=== PATIENT | female | born 1980 | race American Indian/Alaskan Native ===

== ENCOUNTER 2017-10-09 10:06 | Inpatient (IN) ==
[2017-10-09] MEDS ORDERED: HYDROmorphone 2 MG/ML VIAL IV PRN (10:26)
[2017-10-09] MEDS ORDERED: PROMETHAZINE 25 MG/ML VIAL IV PRN (10:26)
[2017-10-09] MEDS ORDERED: LORazepam 2 MG/ML VIAL IV PRN (10:32)
[2017-10-09] MEDS: 0.9 % SODIUM CHLORIDE 10 ML SYRINGE IV SCH ×5 (11:30→22:32)
[2017-10-09 11:33] LABS: Mean Cell Volume 99.1 fL (80.0-100.0); Mean Corpuscular HGB Conc 34.6 g/dL (31.0-36.0); Mean Corpuscular Hemoglobin 34.3 pg (26.0-34.0); Platelet Count 254 K/mcL (140-440); RBC 3.67 M/mcL (4.00-5.20); Red Cell Distribution Width 14.5 % (11.5-14.5)
[2017-10-09] MEDS: 0.9 % SODIUM CHLORIDE 1,000 ML IV SCH ×2 (11:43→21:36)
[2017-10-09] MEDS: ONDANSETRON 4 MG/2 ML VIAL IV PRN ×2 (11:47→17:50)
[2017-10-09 11:48] LABS: Lipase 17 U/L (7-60)
[2017-10-09] MEDS: METOCLOPRAMIDE 10 MG/2 ML VIAL IV SCH ×2 (12:00→17:34)
[2017-10-09] MEDS: PIPERACILLIN SODIUM/TAZOBACTAM 3.375 GM in DEXTROSE 5% IN WATER 50 ML IV SCH ×2 (12:01→17:20)
[2017-10-09] MEDS: INSULIN LISPRO 1 UNIT/0.01 ML UNIT SQ SCH ×3 (12:05→22:31)
[2017-10-09 12:10] LABS: ALT/SGPT 16 U/l (0-40); Albumin 3.4 gm/dL (3.2-5.2); Albumin/Globulin Ratio 0.8 (1.0-2.3); Alkaline Phosphatase 164 U/L (39-117); Bilirubin,Direct 0.5 mg/dL (0.0-0.3); Blood Urea Nitrogen 4 mg/dl (6-20); Gamma Glutamyl Transpeptidase 750 U/L (5-36); Uric Acid 8.7 mg/dL (2.5-8.0)
[2017-10-09 12:11] LABS: Band Neutrophils % 1 % (0-10); Lymphocytes % 21 % (15-49); Metamyelocytes % 1 % (0-0); Monocytes % (Manual) 11 % (1-12); Platelet Estimate NORMAL (NORMAL); RBC Morphology NORMAL (NORMAL); Segmented Neutrophils % 66 % (38-78)
[2017-10-09] MEDS ORDERED: MAGNESIUM SULFATE 32.48 MEQ in DEXTROSE 5% IN WATER 50 ML IV ONE (13:05)
[2017-10-09] MEDS: MAGNESIUM SULFATE 2 GM/50 ML BAG IV SCH ×6 (13:20→18:54)
[2017-10-09] MEDS: POTASSIUM CHLORIDE 40 MEQ in DEXTROSE 5% IN WATER 500 ML IV SCH ×3 (14:13→23:25)
[2017-10-09 14:16] LABS: Hemoglobin A1C 7.3 % HGB (4.0-6.0)
[2017-10-09 14:30] LABS: Appearance,Urine CLOUDY; Bacteria,Urine 0 /hpf (0); Bilirubin,Urine NEG (NEG); Color,Urine YELLOW; Glucose,Urine (UA) NEGATIVE (NEG); Leukocyte Esterase,Urine 500 /uL (NEG); Protein,Urine 30 mg/dL (NEG); Specific Gravity,Urine 1.006 (1.000-1.035); Urine Blood 0.2 mg/dL (<0.03); Urine Hyphae Yeast FEW /hpf (0); Urine RBC 24 /hpf (0-1); Urine Squamous Epithelial Cell < 1 /hpf (0-4); Urine WBC > 182 /hpf (0-4); Urobilinogen,Urine NEG (NEG)
[2017-10-09 15:40] LABS: Amphetamine Screen,Urine NONE DETECTED (NONDETECTED); Benzodiazepines Screen,Urine NONE DETECTED (NONDETECTED); Cocaine Screen,Urine NONE DETECTED (NONDETECTED); Opiate Screen,Urine NONE DETECTED (NONDETECTED); Oxycodone, Urine Screen NONE DETECTED (NONDETECTED)
[2017-10-09] MEDS: PANTOPRAZOLE 40 MG VIAL IV SCH (16:25)
[2017-10-09] MEDS ORDERED: traZODone HCL 50 MG TABLET PO PRN (21:00)
[2017-10-10] MEDS: METOCLOPRAMIDE 10 MG/2 ML VIAL IV SCH ×5 (00:29→23:21)
[2017-10-10] MEDS: PIPERACILLIN SODIUM/TAZOBACTAM 3.375 GM in DEXTROSE 5% IN WATER 50 ML IV SCH ×5 (00:29→23:21)
[2017-10-10] MEDS: ONDANSETRON 4 MG/2 ML VIAL IV PRN ×2 (02:50→15:34)
[2017-10-10] MEDS: 0.9 % SODIUM CHLORIDE 1,000 ML IV SCH ×3 (05:51→17:49)
[2017-10-10 05:54] LABS: Basophils # (Auto) 0.1 K/mcL (0.0-0.3); Basophils % (Auto) 0.7 % (0.0-2.0); Eosinophils # (Auto) 0.1 K/mcL (0.0-0.7); Eosinophils % (Auto) 0.9 % (0.0-7.0); Granulocytes % (Auto) 67.2 % (38.0-78.0); Lymphocytes # (Auto) 1.9 K/mcL (1.5-4.8); Lymphocytes % (Auto) 19.6 % (15.5-49.0); Mean Cell Volume 101.3 fL (80.0-100.0); Mean Corpuscular HGB Conc 34.8 g/dL (31.0-36.0); Mean Corpuscular Hemoglobin 35.3 pg (26.0-34.0); Monocytes # (Auto) 1.1 K/mcL (0.1-0.9); Monocytes % (Auto) 11.6 % (1.0-12.0); Platelet Count 223 K/mcL (140-440); RBC 3.26 M/mcL (4.00-5.20); Red Cell Distribution Width 14.8 % (11.5-14.5)
[2017-10-10 06:53] LABS: ALT/SGPT 12 U/l (0-40); Albumin 2.9 gm/dL (3.2-5.2); Albumin/Globulin Ratio 0.8 (1.0-2.3); Alkaline Phosphatase 133 U/L (39-117); Bilirubin,Direct 0.5 mg/dL (0.0-0.3); Blood Urea Nitrogen 3 mg/dl (6-20); Gamma Glutamyl Transpeptidase 608 U/L (5-36); Uric Acid 4.3 mg/dL (2.5-8.0)
[2017-10-10] MEDS: PANTOPRAZOLE 40 MG VIAL IV SCH ×2 (07:23→15:58)
[2017-10-10] MEDS: INSULIN LISPRO 1 UNIT/0.01 ML UNIT SQ SCH ×4 (07:24→21:16)
[2017-10-10] MEDS ORDERED: CALCIUM GLUCONATE 4.65 MEQ/10 ML VIAL IV ONE (08:34)
[2017-10-10] MEDS ORDERED: POTASSIUM PHOSPHATE 40 MEQ in DEXTROSE 5% IN WATER 500 ML IV ONE (08:37)
[2017-10-10] MEDS: 0.9 % SODIUM CHLORIDE 10 ML SYRINGE IV SCH ×3 (09:11→21:16)
[2017-10-10] MEDS: SODIUM CHLORIDE 0.9% IV SCH ×3 (11:53→15:38)
[2017-10-10] MEDS: CALCIUM CHLORIDE IV SCH ×3 (11:53→15:38)
--- NOTE | 2017-10-10 15:30 | General Surgery Progress Note ---
Subjective Patient reports: feels better, pain is less, tolerating liquids well, bowel movement, nausea, afebrile Narrative: Note initiated : 10/10/17 at 3:29 pm Service Date, if different from initiated Date: [] Patient: Isabel Culver 37 y/o F admitted on 10/09/17 for Recurring N/V, Cholelithiasis. Chief Complaint: [patient states that she feels better. Her nausea and vomiting has significantly improved. She still has some mild mid abdominal pain. Her electrolytes much better.. Her calcium did drop to 5.6. Her phosphorus is 2.6 and potassium is 3.6. She has not had vomiting since admission. Her follow-up lactate is 1.7. Urine cultures revealed no growth. There is some rise in her liver transaminases but her SGOT SGPT and alkaline phosphatase minimally elevated. She probably has some baseline toxic hepatopathy, more than likely related to alcohol ingestion. Will check hepatitis panel to be sure.her urine tox screen is negative.] Objective Temp Pulse Resp BP Pulse Ox 96.9 F L 87 14 119/76 98 10/10/17 11:45 10/10/17 11:45 10/10/17 11:45 10/10/17 11:45 10/10/17 11:45 - Additional Data Intake & Output - Last 24 hours: Intake & Output 10/08/17 10/09/17 10/10/17 10/11/17 05:59 05:59 05:59 05:59 Intake Total 4069 / 4069 760 / 760 Output Total 3200 / 3200 Balance 869 / 869 760 / 760 Weight 153 lb 3.2 oz 153 lb 3.2 oz - General physical appearance well developed, well nourished, no distress - Eyes PERRL, normal ocular movement - ENT normal pinna, normal nares, normal mucosa, no hearing loss, no congestion - Neck no masses, no bruits, trachea midline, no lymphadectomy, no venous distension - Respiratory normal expansion, normal respiratory effort, clear to percussion, clear to auscultation - Cardiovascular Cardiovascular exam: Present: normal rate and rhythm, RRR, +S1, +S2. Absent: JVD, tachycardia - Abdomen non tender, bowel sounds (present), surgical scars (none), masses (none) - Integumentary no rash, no growths, no abnormal pigmentation - Neurologic normal coordination, other (decreased sensation in feet and lower legs) - Musculoskeletal normal gait, normal posture - Psychiatric oriented to time, oriented to person, oriented to place, speech is normal, memory intact - Labs 10/10/17 04:29 10/10/17 04:29 Diabetes panel 10/10/17 Range/Units 04:29 Sodium 135 (133-145) mmol/L Potassium 3.6 (3.3-5.1) mmol/L Chloride 94 L (96-108) mmol/L Carbon Dioxide 27 (22-30) mmol/L BUN 3 L (6-20) mg/dl Creatinine 0.9 (0.6-1.1) mg/dl Glucose 146 H (70-105) mg/dL Calcium 5.8 L* (8.6-10.4) mg/dl AST 41 H (0-37) U/l ALT 12 (0-40) U/l Alkaline Phosphatase 133 H (39-117) U/L Total Protein 6.4 (5.9-8.4) gm/dL Albumin 2.9 L (3.2-5.2) gm/dL Triglycerides 215 H (<150) mg/dl Calcium panel 10/10/17 Range/Units 04:29 Calcium 5.8 L* (8.6-10.4) mg/dl Phosphorus 2.6 L (2.7-4.5) mg/dL Albumin 2.9 L (3.2-5.2) gm/dL Pituitary panel 10/10/17 Range/Units 04:29 Sodium 135 (133-145) mmol/L Potassium 3.6 (3.3-5.1) mmol/L Chloride 94 L (96-108) mmol/L Carbon Dioxide 27 (22-30) mmol/L BUN 3 L (6-20) mg/dl Creatinine 0.9 (0.6-1.1) mg/dl Glucose 146 H (70-105) mg/dL Calcium 5.8 L* (8.6-10.4) mg/dl Adrenal panel 10/10/17 Range/Units 04:29 Sodium 135 (133-145) mmol/L Potassium 3.6 (3.3-5.1) mmol/L Chloride 94 L (96-108) mmol/L Carbon Dioxide 27 (22-30) mmol/L BUN 3 L (6-20) mg/dl Creatinine 0.9 (0.6-1.1) mg/dl Glucose 146 H (70-105) mg/dL Calcium 5.8 L* (8.6-10.4) mg/dl Total Bilirubin 1.2 H (0.0-1.0) mg/dL AST 41 H (0-37) U/l ALT 12 (0-40) U/l Alkaline Phosphatase 133 H (39-117) U/L Total Protein 6.4 (5.9-8.4) gm/dL Albumin 2.9 L (3.2-5.2) gm/dL Assessment and Plan (1) Nausea and vomiting due to hyperglycemia Status: Acute Assessment and plan: Significantly improved on prednisone therapy Scheduled for EGD in the morning Full liquid diet tonight as tolerated Current Visit: Yes (2) Hypokalemia Status: Acute Assessment and plan: Clinically normal at this time Current Visit: Yes (3) Hyperglycemia due to type 2 diabetes mellitus Status: Acute Assessment and plan: Much better controlled on sliding scale insulin coverage We'll reinstitute oral medications Current Visit: No (4) Hypertension, essential Status: Chronic Assessment and plan: Controlled at this time Current Visit: No (5) Hypomagnesemia Status: Chronic Assessment and plan: Resolved after replacement Current Visit: No - Time Spent With Patient Total time spent is greater than 50% in coordination of care (as documented) at patient's floor/unit and/or counseling patient:
[2017-10-11] MEDS: 0.9 % SODIUM CHLORIDE 1,000 ML IV SCH (02:50)
[2017-10-11] MEDS: ONDANSETRON 4 MG/2 ML VIAL IV PRN (02:53)
[2017-10-11] MEDS: METOCLOPRAMIDE 10 MG/2 ML VIAL IV SCH (05:52)
[2017-10-11] MEDS: PIPERACILLIN SODIUM/TAZOBACTAM 3.375 GM in DEXTROSE 5% IN WATER 50 ML IV SCH (05:52)
[2017-10-11] MEDS: 0.9 % SODIUM CHLORIDE 10 ML SYRINGE IV SCH (05:52)
[2017-10-11] MEDS: PANTOPRAZOLE 40 MG VIAL IV SCH (07:24)
[2017-10-11] MEDS ORDERED: FAMOTIDINE/PF 20 MG/2 ML VIAL IV ONE (07:35)
[2017-10-11] MEDS ORDERED: PROPOFOL 200 MG/20 ML VIAL IV ONE (07:35)
[2017-10-11] MEDS ORDERED: MIDAZOLAM 5 MG/5 ML VIAL IV ONE (07:35)
--- NOTE | 2017-10-11 07:56 | Brief Operative Note ---
Date of procedure: 10/11/17 Pre-op diagnosis: recurrent nausea and vomiting Post-op diagnosis: other (severe gastroduodenitis and toxic gastropathy) Procedure: EGD WITH BIOPSIES Grafts/Implants: No Anesthesia: other (GENERAL) Findings: NORMAL ESOPHAGUS;SEVERE INFLAMMAION OF FUNDUS ,BODY AND ANTRUM;MILD DUODENAL INFLAMMATION Complications: none Surgeon: Gage Lee Specimens Removed/Pathology: other (MULTIPLE BIOPSIES) Condition: stable Disposition: same day
[2017-10-11 08:00] LABS: ALT/SGPT 10 U/l (0-40); Albumin 2.6 gm/dL (3.2-5.2); Albumin/Globulin Ratio 0.8 (1.0-2.3); Alkaline Phosphatase 122 U/L (39-117); Bilirubin,Direct 0.5 mg/dL (0.0-0.3); Blood Urea Nitrogen 2 mg/dl (6-20); Gamma Glutamyl Transpeptidase 532 U/L (5-36); Uric Acid 3.1 mg/dL (2.5-8.0)
[2017-10-11] MEDS ORDERED: PROMETHAZINE 25 MG/ML VIAL IV PRN (08:07)
[2017-10-11] MEDS ORDERED: LORazepam 2 MG/ML VIAL IV PRN (08:07)
[2017-10-11] MEDS ORDERED: traZODone HCL 50 MG TABLET PO PRN (08:07)
[2017-10-11] MEDS ORDERED: ONDANSETRON 4 MG/2 ML VIAL IV PRN (08:07)
[2017-10-11 08:29] LABS: Basophils # (Auto) 0.2 K/mcL (0.0-0.3); Basophils % (Auto) 1.9 % (0.0-2.0); Eosinophils # (Auto) 0.1 K/mcL (0.0-0.7); Eosinophils % (Auto) 1.8 % (0.0-7.0); Granulocytes % (Auto) 50.8 % (38.0-78.0); Lymphocytes # (Auto) 2.6 K/mcL (1.5-4.8); Lymphocytes % (Auto) 33.1 % (15.5-49.0); Mean Cell Volume 101.7 fL (80.0-100.0); Mean Corpuscular HGB Conc 33.7 g/dL (31.0-36.0); Mean Corpuscular Hemoglobin 34.3 pg (26.0-34.0); Monocytes % (Auto) 12.4 % (1.0-12.0); Platelet Count 229 K/mcL (140-440); RBC 3.12 M/mcL (4.00-5.20); Red Cell Distribution Width 14.3 % (11.5-14.5)
--- NOTE | 2017-10-11 08:56 | Operative Note ---
DATE OF OPERATION: 10/11/2017 PREOPERATIVE DIAGNOSES: Recurrent nausea and vomiting. POSTOPERATIVE DIAGNOSES: Severe gastroduodenitis with toxic gastropathy. PROCEDURE: Esophagogastroduodenoscopy with biopsies. SURGEON: Gage Lee M.D. FINDINGS: Normal esophagus. Severe inflammation of the fundus, body and antrum of the stomach with mild inflammation of the duodenum. No acute ulceration. Peristalsis appeared to be intact. DESCRIPTION: Under general anesthesia, the patient was turned to the left lateral decubitus position. Timeout procedure was carried out as per protocol. Bite block was placed. Scope was introduced through the bite block into the retropharynx and esophagus. The esophagus was normal. There were adequate peristaltic waves throughout the esophagus. There was no inflammation. GE junction was unremarkable. There was no inflammation or ulceration or stricture. There was no evidence of hiatal hernia. Gastric fundus, body and antrum was moderately severely inflamed with some cobblestone changes, thickening of the gastric folds and severe hyperemia. The inflammation was more prominent in the prepyloric antrum. The pylorus was mildly deformed, but there was no ulceration or evidence of previous ulceration. Duodenal bulb and second portion of the duodenum were inflamed. Third portion of the duodenum appeared to be unremarkable. Biopsies of the antrum and fundus were taken and one set of biopsies were sent for H. pylori. Air was suctioned from the stomach, and the scope was removed. The patient tolerated the procedure well. RECOMMENDATION: The patient will be treated for her toxic gastropathy. Since her peristalsis appeared to be adequate, she should not need to have Reglan at this time. The patient could probably be advanced to a regular diet and discharged later today with plans to bring her back in 2 weeks for cholecystectomy. LCS:ankit Job ID: [id number] Doc ID: [id number] Gage Lee M.D.
[2017-10-11] MEDS ORDERED: PIOGLITAZONE 15 MG TABLET PO SCH ×2 (09:00)
[2017-10-11] MEDS: INSULIN LISPRO 1 UNIT/0.01 ML UNIT SQ SCH ×3 (09:02→18:05)
[2017-10-11] MEDS ORDERED: METOCLOPRAMIDE 10 MG/2 ML VIAL IV SCH (12:00)
[2017-10-11] MEDS ORDERED: PIPERACILLIN SODIUM/TAZOBACTAM 3.375 GM in DEXTROSE 5% IN WATER 50 ML IV SCH (12:00)
[2017-10-11] MEDS ORDERED: 0.9 % SODIUM CHLORIDE 10 ML SYRINGE IV SCH (14:00)
[2017-10-11] MEDS ORDERED: ACETAMINOPHEN 1,000 MG/100 ML BOTTLE IV PRN (15:21)
[2017-10-11] MEDS ORDERED: PANTOPRAZOLE 40 MG VIAL IV SCH (17:00)
--- NOTE | 2017-10-11 17:54 | Discharge Summary ---
Providers - Providers Patient information: Note initiated : 10/11/17 at 5:52 pm Service Date, if different from initiated Date: [] Patient: Isabel Culver 37 y/o F admitted on 10/09/17 for Recurring N/V, Cholelithiasis. Chief Complaint: [] Date of admission: 10/09/17 Discharge date: 10/11/17 Attending physician: Gage Lee Hospitalization Hospital course: 37-year-old female admitted for evaluation of recurrent nausea and vomiting weight loss. The patient has a 20 pound weight loss over the past 2 months. She has immediate postprandial vomiting though she does not have pain. On evaluation she was noted to have multiple gallstones with a normal appearing gallbladder otherwise without inflammation or pericholecystic fluid. The patient has a history of uncontrolled diabetes and she also has difficulty with alcohol ingestion. When seen in the office she had constant vomiting and looked acutely ill. She was admitted with suspected uncontrolled diabetes with ketoacidosis and alcohol-related gastritis. Her urine ketones were negative but her lactic acid was 4.7. Her potassium was 2.5 and magnesium was 0.9. Hemoglobin A1c 7.3 and serum glucose 143. Amylase and lipase were normal. The patient was treated with vigorous IV hydration with replacement of potassium chloride and magnesium. Blood sugars were controlled by sliding scale with Humalog supplement. Urine culture revealed no growth. Her white count did not rise significantly. After hydration and replacement of electrolytes she felt much better. She was treated with pantoprazole IV and given IV Reglan. After 36 hours she was significantly improved and she was scheduled for upper endoscopy. Endoscopy revealed severe total gastric toxic gastropathy compatible with toxic alcoholic changes to the stomach. She did not have major gastroparesis. Biopsies were taken. Postprocedure the patient's diet was advanced and she has tolerated well with minimal nausea. Her electrolytes have been repleted. She is clinically stable and will be discharged home with plans for follow-up in the office in 2 weeks. At the time of return to the office she will be scheduled for elective cholecystectomy. Discharge diagnosis: toxic alcoholic gastropathy Secondary discharge diagnosis: Recurrent nausea and vomiting Diabetes mellitus uncontrolled Severe electrolyte imbalance with hypomagnesemia and hypokalemia Retained right ureteral catheter Cholelithiasis with chronic cholecystitis Reason for admission: uncontrolled nausea and vomiting and weight loss Procedures: Esophagogastroduodenoscopy with biopsies Pertinent studies/significant findings: CT of abdomen and pelvis with contrast Complications: None Exam Temp Pulse Resp BP Pulse Ox 99.6 F H 92 H 18 141/95 100 10/11/17 16:00 10/11/17 16:00 10/11/17 16:00 10/11/17 16:00 10/11/17 16:00 - General physical appearance well developed, well nourished, no distress - Eyes PERRL, normal ocular movement - ENT normal pinna, normal nares, normal mucosa, no hearing loss, no congestion - Head Head exam IM: Present: atraumatic, normocephalic - Neck no masses, no bruits, trachea midline, no lymphadectomy, no venous distension - Cardiovascular Cardiovascular exam IM: Present: normal rate and rhythm - Respiratory normal expansion, normal respiratory effort, clear to percussion, clear to auscultation - Abdomen Abdomen: Present: soft, tender (bowel epigastric and left upper quadrant tenderness), bowel sounds Hernia: Present: none - Genitourinary Present: normal external genitalia - Integumentary Present: no rash, no growths, no abnormal pigmentation - Neurologic Present: normal coordination, normal sensation, other (sensory neuropathy of lower extremities) - Musculoskeletal Present: normal gait, normal posture - Psychiatric Present: oriented to time, oriented to person, oriented to place, speech is normal, memory intact Discharge Plan - Patient/Caregiver Discharge Instructions Activity: increase activity as tolerated Diet: Consistent Carbohydrate Prescriptions: oxyCODONE HCL/ACETAMINOPHEN [Endocet 5-325 Tablet] 1 tab PO Q4H PRN #30 tablet PRN Reason: Pain Pantoprazole [Protonix] 40 mg PO BIDAC #60 tab Promethazine [Phenergan] 25 mg PO Q4HP PRN #30 tab PRN Reason: Nausea And Vomiting Sucralfate [Carafate] 1 gm PO QIDP #120 tab - Follow up Plan Follow up with: Gage Lee MD [Physician] - Disposition: Home, Self-Care Prognosis: Good Rehab Potential: Good I certify that the patient requires SNF services.: No Overall status at discharge: patient is not back to baseline Pending Studies Resuscitation Status Full Code Diet Consistent Carbohydrate Diet Start MonOct 11 [id number] Diagnostic Test (Pha) (Accu-Chek) 1 each FS ACHS [facility] Last Admin: 10/11/17 11:22 Dose: 1 each Piperacillin Sod/Tazobactam (Sod 3.375 gm/ Dextrose) 50 mls @ 100 mls/hr IV Q6H [facility] Last Admin: 10/11/17 12:07 Dose: 100 mls/hr Acetaminophen (Ofirmev) 1,000 mg in 100 mls @ 200 mls/hr IV Q6HP PRN PRN Reason: PAIN/FEVER > 101 Last Admin: 10/11/17 15:51 Dose: 200 mls/hr Insulin Human Lispro (Humalog) 0 unit SQ ACHS [facility] PRN Reason: Protocol Last Admin: 10/11/17 11:22 Dose: Not Given Saxagliptin Hcl [ (Onglyza] 5 Mg Tab) 1 dose PO DAILY [facility] Last Admin: 10/11/17 09:11 Dose: Not Given Pioglitazone HCl (Actos) 15 mg PO QDAY [facility] Last Admin: 10/11/17 09:10 Dose: 15 mg Promethazine HCl (Phenergan) 12.5 mg IV Q6HP PRN PRN Reason: Nausea And Vomiting Last Admin: 10/11/17 11:55 Dose: 12.5 mg Sodium Chloride (Saline Flush) 10 ml IV Q8 [facility] Last Admin: 10/11/17 14:02 Dose: 10 ml Shift Summary 10/11/17 17:29 Shift Summary by Leatha Ayoub Temp of 99.6 at 1600 all other vitals stable. Tolerating diet well. Up ad melecio in room. Voiding well and one loose stool reported by pt. EGD this A.M with biopsies taken. Nausea meds x 1. Accu checks WNL. Pt would like to discharge today and is aware and will be rounding. Initialized on 10/11/17 17:29 - END OF NOTE
[2017-10-11] MEDS ORDERED: SUCRALFATE 1 GM/10 ML ORAL.SUSP PO SCH (18:00)
--- NOTE | 2017-10-12 13:39 | Surgical Pathology Report ---
HISTOLOGY SPECIMEN MICROSCOPIC DIAGNOSIS SPECIMEN A - STOMACH, ANTRUM, BIOPSY: -- MILD CHRONIC GASTRITIS. -- NO HELICOBACTER TYPE ORGANISMS IDENTIFIED (ALCIAN YELLOW STAIN WITH ADEQUATE TECHNICAL CONTROL). SPECIMEN B - STOMACH, FUNDUS, BIOPSY: -- MILD CHRONIC GASTRITIS. -- NO HELICOBACTER TYPE ORGANISMS IDENTIFIED (ALCIAN YELLOW STAIN WITH ADEQUATE TECHNICAL CONTROL). (RLF:gopal) CLINICAL HISTORY Recurring nausea/vomiting; cholelithiasis. PROCEDURAL IMPRESSION Rule out H. pylori. GROSS DESCRIPTION Specimen A: Received in formalin labeled "A" antrum biopsy, are three ledesma tissue fragments 0.1 to 0.5 cm. Totally submitted - one cassette. Specimen B: Received in formalin labeled "B" fundus biopsy, are two ledesma to red-ledesma tissue fragments 0.2 and 0.5 cm. Totally submitted - one cassette. (STS:gopal) Electronically Signed by: Leela Bailey M.D.
== END 2017-10-11 19:52 | disposition home or self-care (01) | DRG 391 ==
LOC: MEDSUR 10:09
PROVIDERS: ADMIT Family Medicine Adult Medicine; ATTEND Family Medicine Adult Medicine